=== PATIENT | female | born 1995 ===

== ENCOUNTER 2017-10-17 15:54 | Emergency (ER) | payer OTHER, MEDICAID ==
[2017-10-17 16:10] VITALS: BP 112/67; PULSE 91; RESP 18; TEMP 98.1; O2SAT 98
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
--- NOTE | 2017-10-17 17:44 | CT ---
PROCEDURE: CT HEAD WITHOUT CONTRAST. HISTORY: Headache. COMPARISON: None available. TECHNIQUE: Axial computed tomography images were obtained through the head/brain without intravenous contrast. Radiation dose: Total exam DLP = 871.49 mGy-cm. This CT exam was performed using one or more of the following dose reduction techniques: Automated exposure control, adjustment of the mA and/or kV according to patient size, and/or use of iterative reconstruction technique. FINDINGS: HEMORRHAGE: No acute parenchymal, subarachnoid or extra-axial hemorrhage. BRAIN: No mass effect or edema. No atrophy or chronic microvascular ischemic changes. Note is made of a elliptical shaped approximately 10.3 x 6.9 mm extra-axial calcification in the left parasagittal anterior interhemispheric fissure in the frontal region that probably represents dural calcification however the possibility of incidental small meningioma not completely excluded. Followup nonemergent pre and post-contrast MRI of the brain could be performed further evaluation if necessary. VENTRICLES: No obstructive hydrocephalus. CALVARIUM: Unremarkable. PARANASAL SINUSES: Unremarkable as visualized. No significant inflammatory changes. MASTOID AIR CELLS: Unremarkable as visualized. No inflammatory changes. OTHER FINDINGS: None. IMPRESSION: No acute intracranial hemorrhage. Incidental note is made of a elliptical shaped approximately 10.3 x 6.9 mm extra-axial calcification in the left parasagittal anterior interhemispheric fissure in the frontal region that probably represents dural calcification however the possibility of incidental small meningioma not completely excluded. Followup nonemergent pre and post-contrast MRI of the brain could be performed further evaluation if necessary.
== END 2017-10-17 18:29 | disposition home or self-care (01) ==
LOC: H.ER 15:54
DX: S09.90XA Unspecified injury of head, initial encounter (principal); W22.8XXA Striking against or struck by other objects, initial encounter; Y99.0 Civilian activity done for income or pay